=== PATIENT | male | born 1980 | race African-American/Black ===

== ENCOUNTER 2016-09-14 10:44 | Emergency (ER) | payer OTHER ==
[~2016-09-14] VITALS: Ht 175.3 cm; Wt 82.3 kg
[2016-09-14 10:50] VITALS: BP 132/69; PULSE 98; RESP 14; O2SAT 98
[2016-09-14 10:55] VITALS: BP 132/69; PULSE 57; RESP 14; TEMP 98; O2SAT 99
--- NOTE | 2016-09-14 11:32 | PD ---
HPI Chief Complaint: Syncope/Near-Syncope Time Seen by Provider: 11:08 Travel History International Travel<30 days: No Contact w/Intl Traveler<30days: No Traveled to known affect area: No History of Present Illness HPI 36yo M with PMH of PTSD, depression presents to the ED with c/o episode of syncope. States that he remembers standing up from the couch and then does not remember walking towards the bathroom and then leaning against the wall and slid down. This was witnessed by his mother and said he had LOC. No seizure activity. Pt states he had a negative seizure work up in 2012. States he had TBI from [facility] but did not have any surgery or bleeding. Pt has chronic headaches. Denies any fever, neck pain, n/v, abdominal pain, focal weakness or numbness. Pt just started tizanidine yesterday that was started by his pain management doctor. PFSH Past Medical History Depression: Yes Insomnia: Yes Psychiatric: Yes (TBI, PTSD) Tetanus Vaccination: Unknown Influenza Vaccination: No Social History Alcohol Use: No Tobacco Use: No Substance Use: No Allergies-Medications (Allergen,Severity, Reaction): Coded Allergies: No Known Allergies (Unverified , 09/14/16) Reported Meds & Prescriptions Reported Meds & Active Scripts Active Active Prescriptions or Reported Medications Unobtainable Review of Systems Except as stated in HPI: all other systems reviewed are Neg Physical Exam Narrative GENERAL: 36yo M not in distress. SKIN: Focused skin assessment warm/dry. HEAD: Atraumatic. Normocephalic. EYES: Pupils equal and round. EOMI. No scleral icterus. No injection or drainage. ENT: No nasal bleeding or discharge. Mucous membranes pink and moist. NECK: Trachea midline. No JVD. CARDIOVASCULAR: Regular rate and rhythm. No murmur appreciated. RESPIRATORY: No accessory muscle use. Clear to auscultation. Breath sounds equal bilaterally. GASTROINTESTINAL: Abdomen soft, non-tender, nondistended. MUSCULOSKELETAL: No obvious deformities. No clubbing. No cyanosis. No edema. NEUROLOGICAL: Awake and alert. No obvious cranial nerve deficits. Motor grossly within normal limits. Normal speech. AAOx3. GCS 15. Data Data Last Documented VS Vital Signs Date Time Temp Pulse Resp B/P Pulse Ox O2 Delivery O2 Flow Rate FiO2 09/14/16 12:20 63 14 128/74 100 Room Air 09/14/16 10:55 98.0 Orders Electrocardiogram (09/14/16 11:25) Basic Metabolic Panel (Bmp) (09/14/16 11:25) Complete Blood Count With Diff (09/14/16 11:25) Magnesium (Mg) (09/14/16 11:25) Ckmb (Isoenzyme) Profile (09/14/16 11:25) Troponin I (09/14/16 11:25) Act Partial Throm Time (Ptt) (09/14/16:) Prothrombin Time / Inr (Pt) (09/14/16:25) Ct Brain W/O Iv Contrast(Rout) (09/14/16 11:25) Ecg Monitoring (09/14/16:) Iv Access Insert/Monitor (09/14/16:) Oximetry (09/14/16:) Orthostatic Vital Signs (09/14/16 11:25) CKMB (09/14/16 11:20) CKMB% (09/14/16 11:20) Sodium Chlor 0.9% 1000 Ml Inj (Ns 1000 M (09/14/16 14:00) Labs Laboratory Tests Test 09/14/16 11:20 White Blood Count 4.0 TH/MM3 Red Blood Count 5.35 MIL/MM3 Hemoglobin 14.9 GM/DL Hematocrit 43.7 % Mean Corpuscular Volume 81.7 FL Mean Corpuscular Hemoglobin 27.8 PG Mean Corpuscular Hemoglobin 34.1 % Concent Red Cell Distribution Width 13.3 % Platelet Count 223 TH/MM3 Mean Platelet Volume 7.9 FL Neutrophils (%) (Auto) 49.0 % Lymphocytes (%) (Auto) 37.6 % Monocytes (%) (Auto) 10.8 % Eosinophils (%) (Auto) 2.1 % Basophils (%) (Auto) 0.5 % Neutrophils # (Auto) 2.0 TH/MM3 Lymphocytes # (Auto) 1.5 TH/MM3 Monocytes # (Auto) 0.4 TH/MM3 Eosinophils # (Auto) 0.1 TH/MM3 Basophils # (Auto) 0.0 TH/MM3 CBC Comment DIFF FINAL Differential Comment Prothrombin Time 10.7 SEC Prothromb Time International 1.0 RATIO Ratio Activated Partial 19.4 SEC Thromboplast Time Sodium Level 142 MEQ/L Potassium Level 3.6 MEQ/L Chloride Level 105 MEQ/L Carbon Dioxide Level 28.1 MEQ/L Anion Gap 9 MEQ/L Blood Urea Nitrogen 18 MG/DL Creatinine 1.54 MG/DL Estimat Glomerular Filtration 63 ML/MIN Rate Random Glucose 112 MG/DL Calcium Level 8.7 MG/DL Magnesium Level 2.3 MG/DL Total Creatine Kinase 252 U/L Creatine Kinase MB 1.6 NG/ML Troponin I LESS THAN 0.02 NG/ML MDM Medical Decision Making Medical Screen Exam Complete: Yes Emergency Medical Condition: Yes Interpretation(s) EKG: NSR 57bpm. Normal axis. Differential Diagnosis Vasovagal syncope vs. medication induced dizziness vs. ICH vs. electrolyte abnormality v Narrative Course 36yo M with episode of syncope, from sitting position. Impression is that it may be medication related since he just started tizanidine yesterday. It can cause dizziness and hypotension. Labs reviewed and showed no leukocytosis. Creatinine mildly elevated at 1.54, pt given NS IVF. Troponin negative. CT brain negative. Pt is asymptomatic and has no focal neurologic deficits. Instructed pt to follow up with pain management physician to possibly switch medications. Return precautions given. Diagnosis Primary Impression: Vasovagal syncope Patient Instructions: General Instructions Departure Forms: Tests/Procedures Additional Instructions: Please follow up with your pain management physician and PMD in 1-2 days. Return to the ED if symptoms worsen. Med/Other Pt SpecificInfo: No Change to Meds Scripts Unable to Obtain Active Prescriptions or Reported Meds Disposition: 01 DISCHARGE HOME Condition: Stable Carmenza Carcamo September 14, 2016 11:32
[2016-09-14 12:00] LABS: BASOPHIL % 0.5 % (0.0-2.0); EOSINOPHIL # 0.1 TH/MM3 (0-0.4); EOSINOPHIL % 2.1 % (0.0-4.0); HEMATOCRIT 43.7 % (39.0-51.0); HEMO FLAGS DIFF FINAL; LYMPH % 37.6 % (9.0-44.0); LYMPHOCYTE # 1.5 TH/MM3 (1.0-4.8); MEAN CELL VOLUME 81.7 FL (80.0-100.0); MEAN CORPUSCULAR HEMOGLOBIN 27.8 PG (27.0-34.0); MEAN CORPUSCULAR HGB CONC 34.1 % (32.0-36.0); MONO % 10.8 % (0.0-8.0); PLATELET COUNT 223 TH/MM3 (150-450); RED BLOOD COUNT 5.35 MIL/MM3 (4.50-5.90); RED CELL DISTRIBUTION WIDTH 13.3 % (11.6-17.2)
[2016-09-14 12:18] LABS: PROTHROMBIN TIME - PATIENT 10.7 SEC (9.8-11.6)
[2016-09-14 12:19] LABS: APTT (PATIENT) 19.4 SEC (24.3-30.1)
[2016-09-14 12:20] VITALS: BP 128/74; PULSE 63; RESP 14; O2SAT 100
[2016-09-14 12:25] LABS: CREATINE KINASE 252 U/L (39-308)
[2016-09-14 12:38] LABS: CKMB 1.6 NG/ML (0.5-3.6)
[2016-09-14 12:44] LABS: ANION GAP 9 MEQ/L (5-15); BICARBONATE 28.1 MEQ/L (21.0-32.0); BLOOD UREA NITROGEN 18 MG/DL (7-18); CHLORIDE 105 MEQ/L (98-107); GLOMERULAR FILTRATION RATE 63 ML/MIN (>89); MAGNESIUM 2.3 MG/DL (1.5-2.5); POTASSIUM 3.6 MEQ/L (3.5-5.1); SODIUM (NA) 142 MEQ/L (136-145)
--- NOTE | 2016-09-14 13:10 | RADRPT ---
EXAM DATE/TIME: 09/14/2016 12:54 [facility] COMPARISON: No previous studies available for comparison. INDICATIONS : Syncopal episode today. RADIATION DOSE: 56.35 CTDIvol (mGy) MEDICAL HISTORY : None SURGICAL HISTORY : None. ENCOUNTER: Initial ACUITY: 1 day PAIN SCALE: 0/10 LOCATION: cranial TECHNIQUE: Multiple contiguous axial images were obtained of the head. Using automated exposure control and adj ustment of the mA and/or kV according to patient size, radiation dose was kept as low as reasonably a chievable to obtain optimal diagnostic quality images. FINDINGS: CEREBRUM: The ventricles are normal for age. No evidence of midline shift, mass lesion, hemorrhage or acute in farction. No extra-axial fluid collections are seen. POSTERIOR FOSSA: The cerebellum and brainstem are intact. The 4th ventricle is midline. The cerebellopontine angle i s unremarkable. EXTRACRANIAL: The visualized portion of the orbits is intact. SKULL: The calvaria is intact. No evidence of skull fracture. CONCLUSION: No acute intracranial disease. Brian Angulo MD on September 14, 2016 at 13:07 Board Certified Radiologist. This report was verified electronically.
[2016-09-14] MEDS ORDERED: SODIUM CHLOR 0.9% 1000 ML INJ 1,000 ML IV ONE (14:00)
--- NOTE | 2016-09-15 14:58 | EKG ---
Date Performed: 09/14/2016 Time Performed: 10:53:33 PTAGE: 36 years EKG: SINUS BRADYCARDIA BORDERLINE RIGHT AXIS DEVIATION BORDERLINE ECG NO PREVIOUS TRACING DOCTOR: Sheri Arcos Interpretating Date/Time 09/15/2016 14:57:19
== END 2016-09-14 14:52 | disposition home or self-care (01) ==
LOC: NEPE 10:44
DX: R55 Syncope and collapse (principal); R94.31 Abnormal electrocardiogram [ECG] [EKG]
CPT/HCPCS: 70450; 80048; 82550; 82552; 83735; 84484; 85025; 85610; 85730; 93005; 96360; 99284; J7030